=== PATIENT | female | born 1950 | race Two or more races ===

== ENCOUNTER 2020-02-08 09:45 | Outpatient (CLI) | payer MEDICARE, MEDICAID ==
[2020-02-08 11:07] LABS: BASOPHILS % (AUTO) 0.7 % (0.0-2.0); EOSINOPHILS % (AUTO) 6.5 % (0.0-6.0); HEMATOCRIT 40 % (33-45); HEMOGLOBIN 13.3 g/dL (11.5-14.8); LYMPHOCYTES # (AUTO) 1.7 /CMM (0.8-4.8); LYMPHOCYTES % (AUTO) 26.9 % (20.0-44.0); MEAN CORPUSCULAR HGB CONC 33 g/dl (31.0-36.0); MEAN CORPUSCULAR VOLUME 84 fL (82-100); MONOCYTES # (AUTO) 0.5 /CMM (0.1-1.30); MONOCYTES % (AUTO) 8.7 % (2.0-12.0); NEUTROPHILS # (AUTO) 3.6 /CMM (1.8-8.9); NEUTROPHILS % (AUTO) 57.2 % (43.0-81.0); PLATELET COUNT (AUTO) 270 /CMM (150-450); RED BLOOD CELL COUNT(AUTO) 4.82 MIL/uL (4.0-5.2); WHITE BLOOD COUNT (AUTO) 6.2 K/uL (4.3-11.0)
[2020-02-08 11:08] LABS: APPEARANCE,URINE CLEAR (CLEAR); BILIRUBIN,URINE NEGATIVE (NEGATIVE); BLOOD, URINE SMALL Ery/uL (NEGATIVE); COLOR,URINE YELLOW (YELLOW); KETONES,URINE NEGATIVE (NEGATIVE); LEUKOCYTE ESTERASE ,URINE SMALL (NEGATIVE); NITRITE, URINE NEGATIVE (NEGATIVE); PROTEIN,URINE NEGATIVE (NEGATIVE); UGLUCOSE NEGATIVE (NEGATIVE); UROBILINOGEN,URINE 0.2 EU/dL (0.2)
[2020-02-08 11:16] LABS: CREATININE, URINE 231.1 MG/DL (30.0-125.0); URINE TOTAL PROTEIN 24.1 mg/dL (0-11.9)
[2020-02-08 11:22] LABS: ALBUMIN 3.7 g/dL (3.4-5.0); BILIRUBIN,TOTAL 0.6 mg/dL (0.2-1.0); CALCIUM, SERUM 9.1 mg/dL (8.5-10.1); CREATININE 0.6 mg/dL (0.6-1.3); MAGNESIUM 2.2 mg/dL (1.8-2.4); PHOSPHORUS 2.9 mg/dL (2.5-4.9); POTASSIUM 3.4 mmol/L (3.5-5.1); TOTAL PROTEIN, SERUM 7.5 g/dL (6.4-8.2)
[2020-02-08 11:29] LABS: THYROID STIMULATING HORMONE 2.048 uIU/mL (0.358-3.74)
[2020-02-08 11:30] LABS: C-REACTIVE PROTEIN 1.9 mg/dL (0.0-0.9)
[2020-02-08 11:57] LABS: BACTERIA,URINE Few /HPF (None Seen); SQUAMOUS EPITHELIAL CELL,UR Few /HPF (None Seen)
[2020-02-09 07:07] LABS: FOLIC ACID > 20.0 ng/mL (>3.0)
== END 2020-02-08 23:59 | disposition home or self-care (01) ==
LOC: MSC 09:45
PROVIDERS: ATTEND Internal Medicine
DX: M17.10 Unilateral primary osteoarthritis, unspecified knee (principal); M54.9 Dorsalgia, unspecified; M25.559 Pain in unspecified hip; I10 Essential (primary) hypertension; E78.5 Hyperlipidemia, unspecified; E66.9 Obesity, unspecified
CPT/HCPCS: 36415; 80053; 80061; 81001; 82306; 82570; 82607; 82746; 83036; 83735; 84100; 84155; 84439; 84443; 85025; 85652; 86140; G0463; 81000-TC

== ENCOUNTER 2020-04-18 11:00 | Outpatient (CLI) | payer MEDICARE, MEDICAID | END 2020-04-18 23:59 | disposition home or self-care (01) | LOC: MSC 11:00 | PROVIDERS: ATTEND Internal Medicine | DX: R53.1 Weakness (principal); M17.10 Unilateral primary osteoarthritis, unspecified knee; M16.9 Osteoarthritis of hip, unspecified; I10 Essential (primary) hypertension; E78.5 Hyperlipidemia, unspecified; E66.9 Obesity, unspecified; M54.9 Dorsalgia, unspecified ==

== ENCOUNTER 2020-12-27 11:17 | Outpatient (CLI) | payer MEDICARE, OTHER | END 2020-12-27 23:59 | disposition home or self-care (01) | LOC: RAD 11:17 | PROVIDERS: ATTEND Internal Medicine | DX: R07.9 Chest pain, unspecified (principal); M46.04 Spinal enthesopathy, thoracic region | CPT/HCPCS: 71046 ==

== ENCOUNTER → 2020-12-27 | Outpatient (CLI) | payer MEDICARE, OTHER | END | disposition home or self-care (01) | LOC: MSC 15:30 | PROVIDERS: ATTEND Internal Medicine | DX: J06.9 Acute upper respiratory infection, unspecified (principal); M17.10 Unilateral primary osteoarthritis, unspecified knee; M16.10 Unilateral primary osteoarthritis, unspecified hip; I10 Essential (primary) hypertension; E78.5 Hyperlipidemia, unspecified; E66.9 Obesity, unspecified; Z79.899 Other long term (current) drug therapy ==

== ENCOUNTER 2021-02-13 09:55 | Outpatient (CLI) | payer MEDICARE, OTHER ==
[2021-02-13 11:40] LABS: BASOPHILS % (AUTO) 0.6 % (0.0-2.0); EOSINOPHILS % (AUTO) 3.9 % (0.0-6.0); HEMATOCRIT 41 % (33-45); HEMOGLOBIN 13.6 g/dL (11.5-14.8); LYMPHOCYTES # (AUTO) 1.8 K/uL (0.8-4.8); LYMPHOCYTES % (AUTO) 28.7 % (20.0-44.0); MEAN CORPUSCULAR HGB CONC 33 g/dl (31.0-36.0); MEAN CORPUSCULAR VOLUME 85 fL (82-100); MONOCYTES # (AUTO) 0.8 K/uL (0.1-1.30); NEUTROPHILS # (AUTO) 3.4 K/uL (1.8-8.9); NEUTROPHILS % (AUTO) 53.8 % (43.0-81.0); PLATELET COUNT (AUTO) 274 K/uL (150-450); WHITE BLOOD COUNT (AUTO) 6.2 K/uL (4.3-11.0)
[2021-02-13 12:13] LABS: THYROID STIMULATING HORMONE 1.152 uIU/mL (0.358-3.74)
[2021-02-13 12:15] LABS: C-REACTIVE PROTEIN 1.6 mg/dL (0.0-0.9)
[2021-02-13 12:33] LABS: ALBUMIN 3.7 g/dL (3.4-5.0); BILIRUBIN,TOTAL 0.6 mg/dL (0.2-1.0); CALCIUM, SERUM 8.9 mg/dL (8.5-10.1); CREATININE 0.7 mg/dL (0.6-1.3); MAGNESIUM 2.2 mg/dL (1.8-2.4); PHOSPHORUS 2.7 mg/dL (2.5-4.9); POTASSIUM 3.4 mmol/L (3.5-5.1); TOTAL PROTEIN, SERUM 7.5 g/dL (6.4-8.2)
== END 2021-02-13 23:59 | disposition home or self-care (01) ==
LOC: MSC 09:55
PROVIDERS: ATTEND Internal Medicine
DX: M17.0 Bilateral primary osteoarthritis of knee (principal); M16.0 Bilateral primary osteoarthritis of hip; I10 Essential (primary) hypertension; E78.5 Hyperlipidemia, unspecified; M54.9 Dorsalgia, unspecified; E66.9 Obesity, unspecified; Z68.30 Body mass index [BMI] 30.0-30.9, adult; Z79.1 Long term (current) use of non-steroidal anti-inflammatories (NSAID); Z79.82 Long term (current) use of aspirin; Z79.899 Other long term (current) drug therapy
CPT/HCPCS: 36415; 80053; 80061; 82306; 82607; 82746; 83036; 83735; 84100; 84443; 85025; 85652; 86140; G0463

== ENCOUNTER → 2021-02-26 | Outpatient (CLI) | payer MEDICARE, OTHER | END | disposition home or self-care (01) | LOC: MSC 15:30 | PROVIDERS: ATTEND Internal Medicine | DX: M17.10 Unilateral primary osteoarthritis, unspecified knee (principal); M16.10 Unilateral primary osteoarthritis, unspecified hip; Z79.1 Long term (current) use of non-steroidal anti-inflammatories (NSAID); R79.82 Elevated C-reactive protein (CRP); J06.9 Acute upper respiratory infection, unspecified; I10 Essential (primary) hypertension; E78.5 Hyperlipidemia, unspecified; E66.9 Obesity, unspecified; Z71.3 Dietary counseling and surveillance; M54.9 Dorsalgia, unspecified; Z79.82 Long term (current) use of aspirin; Z79.899 Other long term (current) drug therapy ==

== ENCOUNTER → 2021-05-07 | Outpatient (CLI) | payer MEDICARE, OTHER | END | disposition home or self-care (01) | LOC: MSC 13:00 | PROVIDERS: ATTEND Internal Medicine | DX: J06.9 Acute upper respiratory infection, unspecified (principal); M17.10 Unilateral primary osteoarthritis, unspecified knee; Z79.1 Long term (current) use of non-steroidal anti-inflammatories (NSAID); R70.0 Elevated erythrocyte sedimentation rate; I10 Essential (primary) hypertension; E78.5 Hyperlipidemia, unspecified; E66.9 Obesity, unspecified; M25.559 Pain in unspecified hip; M54.9 Dorsalgia, unspecified; Z79.82 Long term (current) use of aspirin; Z79.899 Other long term (current) drug therapy ==

== ENCOUNTER 2021-07-01 09:30 | Outpatient (CLI) | payer MEDICARE, OTHER ==
[2021-07-01 10:52] LABS: BASOPHILS % (AUTO) 0.6 % (0.0-2.0); EOSINOPHILS % (AUTO) 5.5 % (0.0-6.0); HEMATOCRIT 40 % (33-45); HEMOGLOBIN 13.2 g/dL (11.5-14.8); LYMPHOCYTES # (AUTO) 1.9 K/uL (0.8-4.8); LYMPHOCYTES % (AUTO) 28.7 % (20.0-44.0); MEAN CORPUSCULAR HGB CONC 34 g/dl (31.0-36.0); MEAN CORPUSCULAR VOLUME 85 fL (82-100); MONOCYTES # (AUTO) 0.6 K/uL (0.1-1.30); MONOCYTES % (AUTO) 8.7 % (2.0-12.0); NEUTROPHILS # (AUTO) 3.8 K/uL (1.8-8.9); NEUTROPHILS % (AUTO) 56.5 % (43.0-81.0); PLATELET COUNT (AUTO) 276 K/uL (150-450); RED BLOOD CELL COUNT(AUTO) 4.63 MIL/uL (4.0-5.2); WHITE BLOOD COUNT (AUTO) 6.7 K/uL (4.3-11.0)
[2021-07-01 10:58] LABS: BILIRUBIN,URINE NEGATIVE (NEGATIVE); COLOR,URINE YELLOW (YELLOW); LEUKOCYTE ESTERASE ,URINE SMALL (NEGATIVE); NITRITE, URINE NEGATIVE (NEGATIVE); PROTEIN,URINE NEGATIVE (NEGATIVE); UGLUCOSE NEGATIVE (NEGATIVE); UROBILINOGEN,URINE 0.2 EU/dL (0.2)
[2021-07-01 11:09] LABS: BACTERIA,URINE Rare /HPF (None Seen); MUCUS,URINE Few /LPF (None Seen); SQUAMOUS EPITHELIAL CELL,UR Few /HPF (None Seen)
[2021-07-01 11:18] LABS: ALANINE AMINOTRANSFERASE 17 U/L (12-78); ALBUMIN 3.6 g/dL (3.4-5.0); ALKALINE PHOSPHATASE 73 U/L (46-116); ASPARTATE AMINOTRANSFERASE 17 U/L (15-37); BILIRUBIN,TOTAL 0.5 mg/dL (0.2-1.0); CALCIUM, SERUM 9.3 mg/dL (8.5-10.1); CARBON DIOXIDE 29 mmol/L (21-32); CHLORIDE 107 mmol/L (98-107); CREATININE 0.5 mg/dL (0.6-1.3); GLUCOSE 85 mg/dL (74-106); MAGNESIUM 2.2 mg/dL (1.8-2.4); PHOSPHORUS 3.2 mg/dL (2.5-4.9); POTASSIUM 4.2 mmol/L (3.5-5.1); SODIUM SERUM 143 mmol/L (136-145); TOTAL PROTEIN, SERUM 7.3 g/dL (6.4-8.2); UREA NITROGEN, BLOOD 14 mg/dL (7-18)
[2021-07-01 19:45] LABS: C-REACTIVE PROTEIN 0.5 mg/dL (0.0-0.9); CHOLESTEROL 221 mg/dL (<200); HDL CHOLESTEROL 61 mg/dL (40-60); LDL 131 mg/dL (0-99); TRIGLYCERIDES 133 mg/dL (30-150)
[2021-07-01 20:21] LABS: FREE T4 (FREE THYROXINE) 0.98 ng/dL (0.76-1.46)
== END 2021-07-01 23:59 | disposition home or self-care (01) ==
LOC: MSC 09:30
PROVIDERS: ATTEND Internal Medicine
DX: M16.0 Bilateral primary osteoarthritis of hip (principal); M17.10 Unilateral primary osteoarthritis, unspecified knee; Z79.1 Long term (current) use of non-steroidal anti-inflammatories (NSAID); R79.82 Elevated C-reactive protein (CRP); I10 Essential (primary) hypertension; E78.5 Hyperlipidemia, unspecified; E66.9 Obesity, unspecified; Z68.27 Body mass index [BMI] 27.0-27.9, adult; Z71.3 Dietary counseling and surveillance; M54.9 Dorsalgia, unspecified; Z79.899 Other long term (current) drug therapy
CPT/HCPCS: 36415; 80053; 80061; 81001; 82043; 82306; 82570; 82607; 82746; 83036; 83735; 84100; 84155; 84439; 84443; 85025; 85652; 86038; 86140; 87086; G0463

== ENCOUNTER → 2021-09-30 | Outpatient (CLI) | payer MEDICARE, OTHER | END | disposition home or self-care (01) | LOC: MSC 16:30 | PROVIDERS: ATTEND Internal Medicine | DX: Z20.822 Contact with and (suspected) exposure to COVID-19 (principal); J02.9 Acute pharyngitis, unspecified; M17.9 Osteoarthritis of knee, unspecified; M17.10 Unilateral primary osteoarthritis, unspecified knee; Z79.1 Long term (current) use of non-steroidal anti-inflammatories (NSAID); R79.82 Elevated C-reactive protein (CRP); I10 Essential (primary) hypertension; E78.5 Hyperlipidemia, unspecified; E66.9 Obesity, unspecified; Z71.3 Dietary counseling and surveillance; M54.9 Dorsalgia, unspecified ==

== ENCOUNTER → 2021-10-16 | Outpatient (CLI) | payer MEDICARE, OTHER | END | disposition home or self-care (01) | LOC: MSC 12:30 | PROVIDERS: ATTEND Internal Medicine | DX: B00.1 Herpesviral vesicular dermatitis (principal); U07.1 COVID-19; M17.10 Unilateral primary osteoarthritis, unspecified knee; Z79.1 Long term (current) use of non-steroidal anti-inflammatories (NSAID); R79.82 Elevated C-reactive protein (CRP); I10 Essential (primary) hypertension; E78.5 Hyperlipidemia, unspecified; E66.9 Obesity, unspecified; Z71.3 Dietary counseling and surveillance; M25.559 Pain in unspecified hip; M54.9 Dorsalgia, unspecified ==

== ENCOUNTER 2021-10-23 09:10 | Outpatient (CLI) | payer MEDICARE, OTHER ==
[2021-10-23 10:28] LABS: BASOPHILS # (AUTO) 0.1 K/uL (0.0-0.2); BASOPHILS % (AUTO) 0.6 % (0.0-2.0); EOSINOPHILS % (AUTO) 4.6 % (0.0-6.0); HEMATOCRIT 38 % (33-45); HEMOGLOBIN 12.9 g/dL (11.5-14.8); LYMPHOCYTES # (AUTO) 1.9 K/uL (0.8-4.8); LYMPHOCYTES % (AUTO) 21.6 % (20.0-44.0); MEAN CORPUSCULAR HGB CONC 34 g/dl (31.0-36.0); MEAN CORPUSCULAR VOLUME 84 fL (82-100); MONOCYTES # (AUTO) 0.9 K/uL (0.1-1.30); MONOCYTES % (AUTO) 9.8 % (2.0-12.0); NEUTROPHILS # (AUTO) 5.6 K/uL (1.8-8.9); NEUTROPHILS % (AUTO) 63.4 % (43.0-81.0); PLATELET COUNT (AUTO) 279 K/uL (150-450); RED BLOOD CELL COUNT(AUTO) 4.54 MIL/uL (4.0-5.2); WHITE BLOOD COUNT (AUTO) 8.9 K/uL (4.3-11.0)
[2021-10-23 10:36] LABS: BILIRUBIN,URINE NEGATIVE (NEGATIVE); COLOR,URINE YELLOW (YELLOW); LEUKOCYTE ESTERASE ,URINE MODERATE (NEGATIVE); NITRITE, URINE NEGATIVE (NEGATIVE); PH,URINE 6.5 (5.0-8.0); PROTEIN,URINE NEGATIVE (NEGATIVE); UGLUCOSE NEGATIVE (NEGATIVE); UROBILINOGEN,URINE 0.2 EU/dL (0.2)
[2021-10-23 10:45] LABS: URINE TOTAL PROTEIN 20.6 mg/dL (0-11.9)
[2021-10-23 11:02] LABS: BACTERIA,URINE Moderate /HPF (None Seen); SQUAMOUS EPITHELIAL CELL,UR Many /HPF (None Seen)
[2021-10-23 11:15] LABS: THYROID STIMULATING HORMONE 1.556 uIU/mL (0.358-3.74)
[2021-10-23 11:24] LABS: ALBUMIN 3.5 g/dL (3.4-5.0); BILIRUBIN,TOTAL 0.8 mg/dL (0.2-1.0); CALCIUM, SERUM 9.1 mg/dL (8.5-10.1); CREATININE 0.6 mg/dL (0.6-1.3); MAGNESIUM 2.1 mg/dL (1.8-2.4); POTASSIUM 3.7 mmol/L (3.5-5.1); TOTAL PROTEIN, SERUM 7.6 g/dL (6.4-8.2)
== END 2021-10-23 23:59 | disposition home or self-care (01) ==
LOC: MSC 09:10
PROVIDERS: ATTEND Internal Medicine
DX: R10.31 Right lower quadrant pain (principal); M17.10 Unilateral primary osteoarthritis, unspecified knee; Z79.1 Long term (current) use of non-steroidal anti-inflammatories (NSAID); M16.10 Unilateral primary osteoarthritis, unspecified hip; R79.82 Elevated C-reactive protein (CRP); I10 Essential (primary) hypertension; E78.5 Hyperlipidemia, unspecified; E66.9 Obesity, unspecified; M54.9 Dorsalgia, unspecified; Z86.16 Personal history of COVID-19; Z79.899 Other long term (current) drug therapy
CPT/HCPCS: 80053; 81001; 82043; 82150; 82306; 82607; 82746; 83036; 83605; 83690; 83735; 84100; 84145; 84155; 84439; 84443; 85025; 85652; 86140; G0463; 36415; 87086-TC

== ENCOUNTER 2021-10-27 09:41 | Outpatient (CLI) | payer MEDICARE, OTHER | END 2021-10-27 23:59 | disposition home or self-care (01) | LOC: CT 09:41 | PROVIDERS: ATTEND Internal Medicine | DX: N28.1 Cyst of kidney, acquired (principal); I70.0 Atherosclerosis of aorta; M16.0 Bilateral primary osteoarthritis of hip; M47.819 Spondylosis without myelopathy or radiculopathy, site unspecified; M62.89 Other specified disorders of muscle; Z90.49 Acquired absence of other specified parts of digestive tract ==

== ENCOUNTER 2021-10-28 09:30 | Outpatient (CLI) | payer MEDICARE, OTHER | END 2021-10-28 23:59 | disposition home or self-care (01) | LOC: MSC 09:30 | PROVIDERS: ATTEND Internal Medicine | DX: R10.9 Unspecified abdominal pain (principal); R79.82 Elevated C-reactive protein (CRP); M54.9 Dorsalgia, unspecified; M17.10 Unilateral primary osteoarthritis, unspecified knee; M16.10 Unilateral primary osteoarthritis, unspecified hip; Z79.1 Long term (current) use of non-steroidal anti-inflammatories (NSAID); I10 Essential (primary) hypertension; E78.5 Hyperlipidemia, unspecified; E66.9 Obesity, unspecified; Z71.3 Dietary counseling and surveillance; Z86.16 Personal history of COVID-19 ==

== ENCOUNTER → 2022-04-17 | Outpatient (CLI) | payer MEDICARE, OTHER | END | disposition home or self-care (01) | LOC: MSC 16:30 | PROVIDERS: ATTEND Internal Medicine | DX: R05.9 Cough, unspecified (principal); Z86.16 Personal history of COVID-19; R10.9 Unspecified abdominal pain; R79.82 Elevated C-reactive protein (CRP); M17.10 Unilateral primary osteoarthritis, unspecified knee; M16.10 Unilateral primary osteoarthritis, unspecified hip; Z79.1 Long term (current) use of non-steroidal anti-inflammatories (NSAID); I10 Essential (primary) hypertension; M54.9 Dorsalgia, unspecified; E78.5 Hyperlipidemia, unspecified; E66.9 Obesity, unspecified; Z71.3 Dietary counseling and surveillance; Z79.899 Other long term (current) drug therapy ==

== ENCOUNTER 2022-04-21 09:13 | Outpatient (CLI) | payer MEDICARE, OTHER ==
[2022-04-21 11:52] LABS: BASOPHILS % (AUTO) 0.4 % (0.0-2.0); EOSINOPHILS % (AUTO) 6.2 % (0.0-6.0); HEMATOCRIT 45 % (33-45); HEMOGLOBIN 14.8 g/dL (11.5-14.8); LYMPHOCYTES # (AUTO) 2.4 K/uL (0.8-4.8); LYMPHOCYTES % (AUTO) 34.9 % (20.0-44.0); MEAN CORPUSCULAR HGB CONC 33 g/dl (31.0-36.0); MEAN CORPUSCULAR VOLUME 85 fL (82-100); MONOCYTES # (AUTO) 0.6 K/uL (0.1-1.30); MONOCYTES % (AUTO) 8.8 % (2.0-12.0); NEUTROPHILS # (AUTO) 3.4 K/uL (1.8-8.9); NEUTROPHILS % (AUTO) 49.7 % (43.0-81.0); PLATELET COUNT (AUTO) 279 K/uL (150-450); RED BLOOD CELL COUNT(AUTO) 5.31 MIL/uL (4.0-5.2); WHITE BLOOD COUNT (AUTO) 6.9 K/uL (4.3-11.0)
[2022-04-21 12:00] LABS: BILIRUBIN,URINE NEGATIVE (NEGATIVE); COLOR,URINE ORANGE (YELLOW); LEUKOCYTE ESTERASE ,URINE 2+ (NEGATIVE); NITRITE, URINE NEGATIVE (NEGATIVE); PROTEIN,URINE NEGATIVE (NEGATIVE); UGLUCOSE NEGATIVE (NEGATIVE); UROBILINOGEN,URINE 0.2 EU/dL (0.2)
[2022-04-21 12:17] LABS: URINE TOTAL PROTEIN 16.2 mg/dL (0-11.9)
[2022-04-21 12:21] LABS: C-REACTIVE PROTEIN 0.6 mg/dL (0.0-0.9)
[2022-04-21 12:44] LABS: ALBUMIN 3.9 g/dL (3.4-5.0); BILIRUBIN,TOTAL 0.7 mg/dL (0.2-1.0); CALCIUM, SERUM 9.3 mg/dL (8.5-10.1); PHOSPHORUS 3.5 mg/dL (2.5-4.9); POTASSIUM 3.8 mmol/L (3.5-5.1); TOTAL PROTEIN, SERUM 8.2 g/dL (6.4-8.2)
[2022-04-21 13:00] LABS: CREATININE 0.7 mg/dL (0.6-1.3); MAGNESIUM 2.3 mg/dL (1.8-2.4)
[2022-04-21 13:02] LABS: BACTERIA,URINE Few /HPF (None Seen)
[2022-04-21 13:03] LABS: SQUAMOUS EPITHELIAL CELL,UR Few /HPF (None Seen)
== END 2022-04-21 23:59 | disposition home or self-care (01) ==
LOC: MSC 09:13
PROVIDERS: ATTEND Internal Medicine
DX: N39.0 Urinary tract infection, site not specified (principal); J11.1 Influenza due to unidentified influenza virus with other respiratory manifestations; R10.9 Unspecified abdominal pain; R79.82 Elevated C-reactive protein (CRP); M17.10 Unilateral primary osteoarthritis, unspecified knee; M16.10 Unilateral primary osteoarthritis, unspecified hip; Z79.1 Long term (current) use of non-steroidal anti-inflammatories (NSAID); I10 Essential (primary) hypertension; E78.5 Hyperlipidemia, unspecified; M54.9 Dorsalgia, unspecified; E66.9 Obesity, unspecified; Z71.3 Dietary counseling and surveillance; Z86.16 Personal history of COVID-19; Z79.899 Other long term (current) drug therapy
CPT/HCPCS: 80061; 85025; 87086; 83735; 83036; 84100; 85652; 81001; 36415; 82746; 82607; 80053; 86140; 82306; 82043; 82570; 84155; G0463

== ENCOUNTER → 2022-04-23 | Outpatient (CLI) | payer MEDICARE, OTHER | END | disposition home or self-care (01) | LOC: MSC 15:30 | PROVIDERS: ATTEND Internal Medicine | DX: N39.0 Urinary tract infection, site not specified (principal); J11.1 Influenza due to unidentified influenza virus with other respiratory manifestations; R10.9 Unspecified abdominal pain; R79.82 Elevated C-reactive protein (CRP); M17.10 Unilateral primary osteoarthritis, unspecified knee; M16.10 Unilateral primary osteoarthritis, unspecified hip; Z79.1 Long term (current) use of non-steroidal anti-inflammatories (NSAID); I10 Essential (primary) hypertension; E78.5 Hyperlipidemia, unspecified; M54.9 Dorsalgia, unspecified; E66.9 Obesity, unspecified; Z71.3 Dietary counseling and surveillance; Z86.16 Personal history of COVID-19 ==

== ENCOUNTER → 2022-06-22 | Outpatient (CLI) | payer MEDICARE, OTHER | END | disposition home or self-care (01) | LOC: MSC 15:30 | PROVIDERS: ATTEND Internal Medicine | DX: M25.551 Pain in right hip (principal); M16.10 Unilateral primary osteoarthritis, unspecified hip; M17.10 Unilateral primary osteoarthritis, unspecified knee; Z87.440 Personal history of urinary (tract) infections; J11.1 Influenza due to unidentified influenza virus with other respiratory manifestations; R10.9 Unspecified abdominal pain; R79.82 Elevated C-reactive protein (CRP); Z79.1 Long term (current) use of non-steroidal anti-inflammatories (NSAID); I10 Essential (primary) hypertension; E78.5 Hyperlipidemia, unspecified; M54.9 Dorsalgia, unspecified; E66.9 Obesity, unspecified; Z71.3 Dietary counseling and surveillance; Z86.16 Personal history of COVID-19 ==

== ENCOUNTER 2022-07-27 17:00 | Outpatient (CLI) | payer MEDICARE, OTHER | END 2022-07-27 23:59 | disposition home or self-care (01) | LOC: MSC 17:00 | PROVIDERS: ATTEND Internal Medicine | DX: M54.50 Low back pain, unspecified (principal); M25.551 Pain in right hip; M16.10 Unilateral primary osteoarthritis, unspecified hip; M17.10 Unilateral primary osteoarthritis, unspecified knee; J11.1 Influenza due to unidentified influenza virus with other respiratory manifestations; R10.9 Unspecified abdominal pain; R79.82 Elevated C-reactive protein (CRP); Z79.1 Long term (current) use of non-steroidal anti-inflammatories (NSAID); I10 Essential (primary) hypertension; E78.5 Hyperlipidemia, unspecified; E66.9 Obesity, unspecified; Z71.3 Dietary counseling and surveillance; Z87.440 Personal history of urinary (tract) infections; Z86.16 Personal history of COVID-19 ==

== ENCOUNTER → 2022-09-18 | Outpatient (CLI) | payer MEDICARE, OTHER | END | disposition home or self-care (01) | LOC: MSC 15:00 | PROVIDERS: ATTEND Internal Medicine | DX: M25.551 Pain in right hip (principal); J11.1 Influenza due to unidentified influenza virus with other respiratory manifestations; R79.82 Elevated C-reactive protein (CRP); M16.10 Unilateral primary osteoarthritis, unspecified hip; M17.10 Unilateral primary osteoarthritis, unspecified knee; Z79.1 Long term (current) use of non-steroidal anti-inflammatories (NSAID); I10 Essential (primary) hypertension; E78.5 Hyperlipidemia, unspecified; E66.9 Obesity, unspecified; Z87.440 Personal history of urinary (tract) infections; Z86.16 Personal history of COVID-19 ==

== ENCOUNTER 2023-10-07 11:45 | Outpatient (CLI) | payer MEDICARE, OTHER | END 2023-10-07 23:59 | disposition home or self-care (01) | LOC: MSC 11:45 | PROVIDERS: ATTEND Internal Medicine | DX: M25.512 Pain in left shoulder (principal); M25.511 Pain in right shoulder; J02.9 Acute pharyngitis, unspecified; Z86.16 Personal history of COVID-19; H10.9 Unspecified conjunctivitis; I10 Essential (primary) hypertension; R51.9 Headache, unspecified; E78.5 Hyperlipidemia, unspecified; M17.10 Unilateral primary osteoarthritis, unspecified knee; R79.82 Elevated C-reactive protein (CRP); E66.9 Obesity, unspecified; E87.6 Hypokalemia; M79.605 Pain in left leg; M79.604 Pain in right leg; R82.71 Bacteriuria ==

== ENCOUNTER 2025-04-17 12:00 | Outpatient (CLI) | payer MEDICARE, OTHER | END 2025-04-17 23:59 | disposition home or self-care (01) | LOC: MSC 12:00 | PROVIDERS: ATTEND Internal Medicine | DX: R19.7 Diarrhea, unspecified (principal); R52 Pain, unspecified; H81.399 Other peripheral vertigo, unspecified ear; E78.5 Hyperlipidemia, unspecified; I10 Essential (primary) hypertension; R79.82 Elevated C-reactive protein (CRP); R20.2 Paresthesia of skin; E61.1 Iron deficiency; R05.9 Cough, unspecified; H10.9 Unspecified conjunctivitis; E87.6 Hypokalemia; D72.828 Other elevated white blood cell count; R51.9 Headache, unspecified; G89.4 Chronic pain syndrome; M16.0 Bilateral primary osteoarthritis of hip; M17.0 Bilateral primary osteoarthritis of knee; M75.121 Complete rotator cuff tear or rupture of right shoulder, not specified as traumatic ==